=== PATIENT | female | born 1995 | race Caucasian/White ===

== ENCOUNTER 2021-09-01 10:18 | Inpatient (IN) | payer OTHER ==
[~2021-09-01] VITALS: Ht 162.6 cm; Wt 104.5 kg
[2021-09-01] VITALS (8 sets, daily range): BP systolic 117–129; BP diastolic 75–87
[2021-09-01] MEDS ORDERED: IV NORMAL SALINE 1000ML BAG 1,000 ML IV SCH ×2 (10:30→16:00)
[2021-09-01] MEDS ORDERED: ONDANSETRON PF 4 MG/2 ML VIAL. IVP ONE (10:30)
[2021-09-01] MEDS ORDERED: KETOROLAC 30 MG/ML VIAL. IVP ONE (10:30)
[2021-09-01] MEDS ORDERED: fentaNYL PF VIAL 100 MCG/2 ML VIAL IVP ONE ×2 (10:30→13:00)
--- NOTE | 2021-09-01 10:33 | PHYS DOC ---
General Adult EDM: Chief Complaint: FLANK PAIN HPI: HPI: Patient is a 26 year old female who presents with this morning awoke and went to go use the restroom and did not urinate as much as she usually does in the morning. She is having severe right flank pain that wraps around into her right lower quadrant that is sharp and shooting. She states that she also feels like she has to have some kind of a bowel movement but is unable to have a bowel movement. She states that she drinks some water and threw it up but she also tried to drink some coffee and also vomited that back up. She denies burning with urination, urinary frequency, fever, diarrhea, headache, dizziness, hematuria, constipation, drug use, alcohol use, smoking, chest pain, shortness of air, cough. She has a history of depression, anxiety. She is on control and Lexapro medication daily. Rates her pain 10 out of 10 at this time. (KELLEY JARRETT [employer]CELAIN ENAMEL SPRAYER) Review of Systems: Review of Systems: Constitutional: Denies fever or chills. [] Eyes: Denies change in visual acuity. [] HENT: Denies nasal congestion or sore throat. [] Respiratory: Denies cough or shortness of breath. [] Cardiovascular: Denies chest pain or edema. [] GI: +Right lower abdominal pain, +nausea, +vomiting, denies bloody stools or diarrhea. [] : Denies dysuria. + urine retention[] Musculoskeletal: +right flank back pain or denies joint pain. [] Integument: Denies rash. [] Neurologic: Denies headache, focal weakness or sensory changes. [] Endocrine: Denies polyuria or polydipsia. [] Lymphatic: Denies swollen glands. [] Psychiatric: Denies depression or anxiety. [] (KELLEY JARRETT [employer] ENAMEL SPRAYER) Heart Score: C/O Chest Pain: No (KELLEY JARRETT [employer]EL[employer] ENAMEL SPRAYER) Physical Exam: PE: Constitutional: Well developed, well nourished, no acute distress, non-toxic appearance. [] HENT: Normocephalic, atraumatic, bilateral external ears normal, oropharynx moist, no oral exudates, nose normal. [] Eyes: PERRLA, EOMI, conjunctiva normal, no discharge. [] Neck: Normal range of motion, no tenderness, supple, no stridor. [] Cardiovascular:Heart rate regular rhythm, no murmur [] Lungs & Thorax: Bilateral breath sounds clear to auscultation [] Abdomen: Bowel sounds normal, soft, no tenderness, no masses, no pulsatile masses. [] Skin: Warm, dry, no erythema, no rash. [] Back: No tenderness, Right CVA tenderness. [] Extremities: No tenderness, no cyanosis, no clubbing, ROM intact, no edema. [] Neurologic: Alert and oriented X 3, normal motor function, normal sensory function, no focal deficits noted. [] Psychologic: Affect normal, judgement normal, mood normal. [] (KELLEY JARRETT APRN) EKG: EKG: [] (KELLEY JARRETT APRN) Radiology/Procedures: Radiology/Procedures: [] Impression: [facility] [address] [place], [place] [id number] IMAGING REPORT Signed PATIENT: BRAYAN REVELES ACCOUNT: [id number] : 1995 LOCATION: ER AGE: 26 SEX: F EXAM STATUS: REG ER ORD. PHYSICIAN: KELLEY JARRETT APRN REASON: right flank with right lower abdomen pain PROCEDURE: CT ABDOMEN PELVIS WO CONTRAST CT ABDOMEN+PELVIS WO dated 09/01/2021 10:47 AM Indication:Reason: right flank with right lower abdomen pain / Spl. Instructions: / History: Comparison: No comparison is available. Technique: Helical noncontrast images were performed. One or more of the following individualized dose reduction techniques were utilized for this examination: 1. Automated exposure control 2. Adjustment of the mA and/or kV according to patient size 3. Use of iterative reconstruction technique Findings: The lung bases are clear. The liver and spleen are homogeneous in density and normal in configuration. The kidneys show no apparent mass, calcification or obstruction. The adrenal glands are not enlarged. No pancreatic abnormality is seen. Evaluation of the solid organs is somewhat limited by lack of IV contrast. There is no apparent retroperitoneal or mesenteric adenopathy. No abdominal soft tissue mass is seen. There is some high density along the mucosal surface of the colon. This presumably relates to ingested material. There may be mild diffuse colon wall thickening, although there is no surrounding inflammation. A normal appendix is seen inferior to the cecum. Images through the pelvis show no apparent abnormality of the distal ureters or bladder. The bladder was not well distended. No pelvic or inguinal adenopathy is seen. There is a rounded mass in the mid pelvis along the anterior aspect of the uterus. This is mostly fat density internally, although there is some soft tissue density and calcification. This mass measures about 9.4 x 7.6 x 7.4 cm. No adjacent edema or free fluid is seen. There is no separate pelvic mass. IMPRESSION: No renal or ureteral stone is seen. There may be mild colon wall thickening such as from mild colitis. 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 This probably involves the right ovary. Lack of adjacent edema or free fluid would make torsion unlikely. Ultrasound would probably not provide additional information in this case based on the size of the mass and the patient's body habitus. Electronically signed by: Renetta Geller Jr., MD (09/01/2021 11:13 AM) [id number] DICTATED and SIGNED BY: RNEETTA GELLER Jr, MD DATE: 09/01/21 [id number] [facility] [address] [place] [address] IMAGING REPORT Signed PATIENT: BRAYAN REVELES ACCOUNT: [id number] : 1995 LOCATION: ER AGE: 26 SEX: F EXAM STATUS: REG ER ORD. PHYSICIAN: KELLEY JARRETT APRN REASON: abnormal CT, SEVERE ABDOMINAL PAIN PROCEDURE: PELVIS W/TV US PELVIS W/TV Clinical Indication: Reason: abnormal CT, SEVERE ABDOMINAL PAIN Comparison: CT abdomen and pelvis without contrast, earlier same day. TECHNIQUE: Real-time ultrasound imaging of the pelvis using transabdominal and transvaginal window is performed. Findings: Anteverted uterus measures 7.2 x 3.9 x 3.2 cm. No focal abnormality. Endometrial stripe is normal measuring 7 mm. No cul-de-sac free fluid is identified. There is normal blood flow in the left ovary. Small follicles are noted. There is a heterogeneous hyperechoic mass of the right adnexa measuring a pproximately 7.4 x 8.9 x 9.8 cm. This ovarian teratoma is better characterized on the prior CT. Right ovary separate from this structure is not identified. IMPRESSION: 1. 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 2. Left ovary is normal. Electronically signed by: Mainor Velasco MD (09/01/2021 1:32 PM) [id number] DICTATED and SIGNED BY: MAINOR VELASCO MD DATE: 09/01/21 [id number] 0 (KELLEY JARRETT APRN) Course & Med Decision Making: Course & Med Decision Making Pertinent Labs and Imaging studies reviewed. (See chart for details) See HPI. Alert and oriented x4. Ambulatory with a steady gait. Speaks in full clear sentences. Right CVA tenderness. Right lower quadrant pain. States she does not feel like her bladder is full. Skin pink warm and dry. She did not take any medications prior to coming to the hospital. Her last menstrual period was [address] showed is showing a teratoma. I did get an ultrasound to check for flow to the ovary. I have spoken to Dr. Mccarty about the patient who states that he is coming to see the patient in the ED. Dr. Mccarty states that he is taking the patient to surgery. He gave no other orders. He states that he does not need any preprocedure antibiotics. (KELLEY JARRETT APRN) Course & Med Decision Making I was the Attending physician on the above date of service of this patient. This patient was evaluated, examined, treated, and dispositioned from the emergency department by the mid-level practitioner. I reviewed work-up and agreed to plan of care as stated Electronically signed, Kasey Valentino DO (KASEY VALENTINO DO) Sussy Disclaimer: Sussy Disclaimer: This electronic medical record was generated, in whole or in part, using a voice recognition dictation system. (KELLEY JARRETT APRN) Departure Departure Impression: Primary Impression: Ovarian mass, right Disposition: ADMITTED INPATIENT Admitting Physician: SHENA CONTRERAS) (KELLEY JARRETT APRN) Condition: STABLE KELLEY JARRETT APRN Sep 01, 2021 10:33 KASEY VALENTINO DO Sep 02, 2021 14:03
--- NOTE | 2021-09-01 11:15 | RAD ---
CT ABDOMEN+PELVIS WO dated 09/01/2021 10:47 AM Indication:Reason: right flank with right lower abdomen pain / Spl. Instructions: / History: Comparison: No comparison is available. Technique: Helical noncontrast images were performed. One or more of the following individualized dose reduction techniques were utilized for this examinat ion: 1. Automated exposure control 2. Adjustment of the mA and/or kV according to patient size 3. Use of iterative reconstruction technique Findings: The lung bases are clear. The liver and spleen are homogeneous in density and normal in configuration . The kidneys show no apparent mass, calcification or obstruction. The adrenal glands are not enlarge d. No pancreatic abnormality is seen. Evaluation of the solid organs is somewhat limited by lack of I V contrast. There is no apparent retroperitoneal or mesenteric adenopathy. No abdominal soft tissue m ass is seen. There is some high density along the mucosal surface of the colon. This presumably relat es to ingested material. There may be mild diffuse colon wall thickening, although there is no surrou nding inflammation. A normal appendix is seen inferior to the cecum. Images through the pelvis show no apparent abnormality of the distal ureters or bladder. The bladder was not well distended. No pelvic or inguinal adenopathy is seen. There is a rounded mass in the mid pelvis along the anterior aspect of the uterus. This is mostly fat density internally, although there is some soft tissue density and calcification. This mass measures about 9.4 x 7.6 x 7.4 cm. No adjac ent edema or free fluid is seen. There is no separate pelvic mass. IMPRESSION: No renal or ureteral stone is seen. There may be mild colon wall thickening such as from mild colitis. 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 This probably involves th e right ovary. Lack of adjacent edema or free fluid would make torsion unlikely. Ultrasound would pro bably not provide additional information in this case based on the size of the mass and the patient's body habitus. Electronically signed by: João Geller Jr., MD (09/01/2021 11:13 AM) [id number]
[2021-09-01 11:18] LABS: BASO # 0.1 x10^3/uL (0.0-0.2); BASO % 1 % (0-3); EOS # 0.2 x10^3/uL (0.0-0.7); EOS % 1 % (0-3); HEMATOCRIT 40.4 % (36.0-47.0); HEMOGLOBIN 13.5 g/dL (12.0-15.5); LYMPH # 1.9 x10^3/uL (1.0-4.8); LYMPH % 16 % (24-48); MEAN CORPUSCULAR HEMOGLOBIN 30 pg (25-35); MEAN CORPUSCULAR HGB CONC 33 g/dL (31-37); MEAN CORPUSCULAR VOLUME 90 fL (79-100); MONO # 0.6 x10^3/uL (0.0-1.1); MONO % 5 % (0-9); NEUT # 8.7 x10^3/uL (1.8-7.7); NEUT % 77 % (31-73); PLATELET COUNT 175 x10^3/uL (140-400); RED CELL DISTRIBUTION WIDTH 12.8 % (11.5-14.5); WHITE BLOOD COUNT 11.3 x10^3/uL (4.0-11.0)
[2021-09-01 11:28] LABS: BILIRUBIN,URINE NEGATIVE (NEG); CLARITY,URINE CLEAR; COLOR,URINE YELLOW; NITRITE,URINE NEGATIVE (NEG); PROTEIN,URINE NEGATIVE (NEG-TRACE); UROBILINOGEN,URINE 0.2 mg/dL (0.2 mg/dL)
[2021-09-01 11:42] LABS: BACTERIA,URINE FEW /HPF (0-FEW); RBC,URINE 0 /HPF (0-2); WBC,URINE 0 /HPF (0-4)
[2021-09-01 11:56] LABS: CALCIUM 8.5 mg/dL (8.5-10.1); CREATININE 0.7 mg/dL (0.6-1.0); GFR 99.6; POTASSIUM 4.4 mmol/L (3.5-5.1)
[2021-09-01 12:02] LABS: ALBUMIN 3.7 g/dL (3.4-5.0); ALBUMIN/GLOBULIN RATIO 1.1 (1.0-1.7); TOTAL BILIRUBIN 0.4 mg/dL (0.2-1.0); TOTAL PROTEIN 7.2 g/dL (6.4-8.2)
--- NOTE | 2021-09-01 13:35 | RAD ---
US PELVIS W/TV Clinical Indication: Reason: abnormal CT, SEVERE ABDOMINAL PAIN Comparison: CT abdomen and pelvis without contrast, earlier same day. TECHNIQUE: Real-time ultrasound imaging of the pelvis using transabdominal and transvaginal window is performed. Findings: Anteverted uterus measures 7.2 x 3.9 x 3.2 cm. No focal abnormality. Endometrial stripe is normal josé antonio suring 7 mm. No cul-de-sac free fluid is identified. There is normal blood flow in the left ovary. Small follicles are noted. There is a heterogeneous hyperechoic mass of the right adnexa measuring approximately 7.4 x 8.9 x 9.8 cm. This ovarian teratoma is better characterized on the prior CT. Right ovary separate from this st ructure is not identified. IMPRESSION: 1. 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 2. Left ovary is normal. Electronically signed by: Mainor Velasco MD (09/01/2021 1:32 PM) [id number]
--- NOTE | 2021-09-01 13:47 | PDOC1 ---
REFINERY OPERATOR COKING H&P Date of Admission: Date of Admission: History of Present Illness: The pt is a 26y G0 who presented to the ER with acute onset RLQ pain. The pt states that when she woke up this am she had intense pain in her abd and lower back. Initially she thought it was gas, so she tried to start her work out. The pain only got worse. She had vomited twice. With the worsening pain, they decide to come to the ER. In the ER the pt was found to have a slightly elevated WBC of 11.3. A CT was performed revealing the following: No renal or ureteral stone is seen. There may be mild colon wall thickening such as from mild colitis. 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 This probably involves the right ovary. Lack of adjacent edema or free fluid would make torsion unlikely. Ultrasound would probably not provide additional information in this case based on the size of the mass and the patient's body habitus. PMH: Denies PSH: Denies Meds: Lexapro, OCPs All: PCN, Sulfa OBHx: G0 [employer]: LMP ~2wks ago 9yo / regular SH: no tob, rare EtOH FH: DVT, HTN, DM Medications: Meds: Current Medications Medications (Trade) Dose Ordered Sig/Gabby Route PRN Reason Start Time Stop Time Status Last Admin Dose Admin Sodium Chloride 1,000 ml @ 1,000 mls/hr Q1H IV 09/01/21 10:30 09/01/21 11:29 DC 09/01/21 11:00 Fentanyl Citrate (Fentanyl 2ml Vial) 50 mcg 1X ONCE IVP 09/01/21 10:30 09/01/21 10:47 DC 09/01/21 10:40 Ondansetron HCl (Zofran) 4 mg 1X ONCE IVP 09/01/21 10:30 09/01/21 10:47 DC 09/01/21 10:40 Ketorolac Tromethamine (Toradol 30mg Vial) 30 mg 1X ONCE IVP 09/01/21 10:30 09/01/21 10:47 DC 09/01/21 10:40 Fentanyl Citrate (Fentanyl 2ml Vial) 50 mcg 1X ONCE IVP 09/01/21 13:00 09/01/21 13:01 DC 09/01/21 13:07 Allergies: Coded Allergies: Penicillins (Verified Allergy, Unknown, 09/01/21) Sulfa (Sulfonamide Antibiotics) (Verified Allergy, Unknown, 09/01/21) Physical Exam: Vital Signs: Vital Signs Date Time Temp Pulse Resp B/P (MAP) Pulse Ox O2 Delivery O2 Flow Rate FiO2 09/01/21 10:25 98.4 24 154/100 (118) Room Air 98.4 PE: GENERAL: No apparent distress. Alert and oriented. HEENT: Head normocephalic, atraumatic. NECK: Supple LUNGS: Clear to auscultation. HEART: RRR, S1, S2 present, pulses intact ABDOMEN: Soft, positive bowel sounds. EXTREMITIES: No cyanosis or edema. NEUROLOGIC: Normal speech, normal tone PSYCHIATRIC: Normal affect, normal mood. SKIN: No ulceration. Labs: Laboratory Tests Test 09/01/21 10:21 09/01/21 10:23 09/01/21 10:34 Urine Collection Type Void Urine Color Yellow Urine Clarity Clear Urine pH 7.0 (<5.0-8.0) Urine Specific Cantril 1.025 (1.000-1.030) Urine Protein Negative mg/dL (NEG-TRACE) Urine Glucose (UA) Negative mg/dL (NEG) Urine Ketones (Stick) Negative mg/dL (NEG) Urine Blood Negative (NEG) Urine Nitrite Negative (NEG) Urine Bilirubin Negative (NEG) Urine Urobilinogen Dipstick 0.2 mg/dL (0.2 mg/dL) Urine Leukocyte Esterase Negative (NEG) Urine RBC 0 /HPF (0-2) Urine WBC 0 /HPF (0-4) Urine Squamous Epithelial Cells Few /LPF Urine Bacteria Few /HPF (0-FEW) Urine Mucus Mod /LPF POC Urine HCG, Qualitative Hcg negative (Negative) White Blood Count 11.3 x10^3/uL (4.0-11.0) H Red Blood Count 4.50 x10^6/uL (3.50-5.40) Hemoglobin 13.5 g/dL (12.0-15.5) Hematocrit 40.4 % (36.0-47.0) Mean Corpuscular Volume 90 fL (79-100) Mean Corpuscular Hemoglobin 30 pg (25-35) Mean Corpuscular Hemoglobin Concent 33 g/dL (31-37) Red Cell Distribution Width 12.8 % (11.5-14.5) Platelet Count 175 x10^3/uL (140-400) Neutrophils (%) (Auto) 77 % (31-73) H Lymphocytes (%) (Auto) 16 % (24-48) L Monocytes (%) (Auto) 5 % (0-9) Eosinophils (%) (Auto) 1 % (0-3) Basophils (%) (Auto) 1 % (0-3) Neutrophils # (Auto) 8.7 x10^3/uL (1.8-7.7) H Lymphocytes # (Auto) 1.9 x10^3/uL (1.0-4.8) Monocytes # (Auto) 0.6 x10^3/uL (0.0-1.1) Eosinophils # (Auto) 0.2 x10^3/uL (0.0-0.7) Basophils # (Auto) 0.1 x10^3/uL (0.0-0.2) Sodium Level 140 mmol/L (136-145) Potassium Level 4.4 mmol/L (3.5-5.1) Chloride Level 105 mmol/L (98-107) Carbon Dioxide Level 23 mmol/L (21-32) Anion Gap 12 (6-14) Blood Urea Nitrogen 15 mg/dL (7-20) Creatinine 0.7 mg/dL (0.6-1.0) Estimated GFR (Cockcroft-Gault) 99.6 BUN/Creatinine Ratio 21 (6-20) H Glucose Level 101 mg/dL (70-99) H Calcium Level 8.5 mg/dL (8.5-10.1) Total Bilirubin 0.4 mg/dL (0.2-1.0) Aspartate Amino Transferase (AST) 15 U/L (15-37) Alanine Aminotransferase (ALT) 21 U/L (14-59) Alkaline Phosphatase 70 U/L (46-116) Total Protein 7.2 g/dL (6.4-8.2) Albumin 3.7 g/dL (3.4-5.0) Albumin/Globulin Ratio 1.1 (1.0-1.7) Lipase 119 U/L (73-393) Laboratory Tests 09/01/21 10:34 Laboratory Tests 09/01/21 10:34 Laboratory Tests 09/01/21 10:34 Assessment & Plan: A/P 26y G0 with a right ovarian mass 1.) Right ovarian mass likely teratoma on CT. Based on acute abd discussed removal at this time. Discussed impact on future fertility. Pt understands and is willing to proceed. 2.) RLQ/back pain only improved with pain meds, cant lay back DOMINGO LUCIA MD Sep 01, 2021 13:47
[2021-09-01] MEDS ORDERED: MORPHINE SULFATE 2 MG/ML INJ. IVP PRN ×3 (16:00→18:30)
[2021-09-01] MEDS ORDERED: ONDANSETRON PF 4 MG/2 ML VIAL. IVP PRN (16:15)
[2021-09-01] MEDS ORDERED: GENTAMICIN SULFATE 270 MG in IV NORMAL SALINE 100ML 100 ML IV SCH (17:00)
[2021-09-01] MEDS ORDERED: PROPOFOL 10 MG/ML (20ML) VIAL. IV ONE (17:09)
[2021-09-01] MEDS ORDERED: DEXAMETHASONE SOD PHOS 4 MG/ML VIAL ONE (17:09)
[2021-09-01] MEDS ORDERED: ONDANSETRON PF 4 MG/2 ML VIAL. ONE (17:09)
[2021-09-01] MEDS ORDERED: ROCURONIUM 50 MG/5 ML VIAL. ONE (17:10)
--- NOTE | 2021-09-01 17:17 | NUR ---
To Or per cart vss
[2021-09-01] MEDS ORDERED: SURGICEL HEMOSTAT 4X8 EACH. ONE (17:31)
[2021-09-01] MEDS ORDERED: fentaNYL PF VIAL 100 MCG/2 ML VIAL ONE ×2 (18:05→19:11)
[2021-09-01] MEDS ORDERED: IV RINGERS,LACTATED 1000ML 1,000 ML IV SCH ×2 (18:30→19:30)
[2021-09-01] MEDS ORDERED: PROCHLORPERAZINE 10 MG/2 ML VIAL. IVP PRN ×2 (18:30→19:30)
[2021-09-01] MEDS ORDERED: fentaNYL PF VIAL 100 MCG/2 ML VIAL IVP PRN ×3 (18:30→19:30)
[2021-09-01] MEDS ORDERED: HYDROmorphone 2 MG/ML VIAL IVP PRN ×2 (18:30→19:30)
[2021-09-01] MEDS ORDERED: GLYCOPYRROLATE 1 MG/5 ML VIAL. ONE (18:56)
[2021-09-01] MEDS ORDERED: SEVOFLURANE 61 TO 120 MINUTES. IH ONE (18:56)
[2021-09-01] MEDS ORDERED: NEOSTIGMINE METHYLSULFATE 5 MG/5 ML SYRINGE. ONE (18:56)
[2021-09-01] MEDS ORDERED: MORPHINE SULFATE 2 MG/ML INJ. IV PRN ×2 (19:00)
[2021-09-01] MEDS ORDERED: diphenhydrAMINE HCL 25 MG CAPSULE PO PRN (19:00)
[2021-09-01] MEDS ORDERED: KETOROLAC 15 MG/ML VIAL. IV PRN (19:00)
[2021-09-01] MEDS ORDERED: oxyCODONE/APAP 5/325 1 TAB TABLET PO PRN (19:00)
[2021-09-01] MEDS ORDERED: DEXTROSE 50% 25 GM / 50ML DISP.SYRIN. IV PRN (19:00)
[2021-09-01] MEDS ORDERED: NALOXONE 0.4 MG/ML VIAL. IV PRN (19:00)
[2021-09-01] MEDS: IV DEXTROSE 5 %-0.45 % NACL 1,000 ML IV SCH (19:00)
[2021-09-01] MEDS ORDERED: 0.9 % SODIUM CHLORIDE 10 ML DISP.SYRIN. IV PRN (19:00)
[2021-09-01] MEDS ORDERED: diphenhydrAMINE 50 MG/ML VIAL IV PRN (19:00)
[2021-09-01] MEDS: IV NORMAL SALINE 1000ML BAG 1,000 ML IV SCH (19:00)
--- NOTE | 2021-09-01 19:02 | PDOC4 ---
OPERATIVE NOTE: PreOp Dx: 1.) Right ovarian mass likely teratoma, 2.) RLQ/back pain PostOp Dx: same Procedure: Open RSO Surgeon: Feroz Lucia Anesthesia: GETA EBL: 300 cc Fluids: 1000 cc UOP: 175 cc Complications: None Findings: right enlarged ovary and cyst Pathology: right tube and ovary DOMINGO LUCIA MD Sep 01, 2021 19:02
[2021-09-01] MEDS: fentaNYL PF VIAL 100 MCG/2 ML VIAL IVP PRN ×2 (19:14→19:22)
[2021-09-01] MEDS: MORPHINE SULFATE 2 MG/ML INJ. IVP PRN ×2 (19:14→19:24)
--- NOTE | 2021-09-01 20:24 | OP ---
DATE OF SURGERY: 09/01/2021 PREOPERATIVE DIAGNOSES: 1. Right ovarian mass, likely teratoma. 2. Right lower quadrant/back pain. POSTOPERATIVE DIAGNOSES: 1. Right ovarian mass, likely teratoma. 2. Right lower quadrant/back pain. PROCEDURE: Open RSO. SURGEON: Hernandez Mccarty MD ANESTHESIA: General endotracheal intubation. ESTIMATED BLOOD LOSS: 300 mL. FLUIDS: 1000 mL. URINE OUTPUT: 175 mL. COMPLICATIONS: None. FINDINGS: Right enlarged ovarian cyst. PATHOLOGY: Right tube and ovary. DESCRIPTION OF PROCEDURE: The patient was taken to the operating room where general endotracheal intubation was obtained without difficulty. The patient was prepped and draped in normal sterile fashion. Pfannenstiel skin incision was made approximately 2 cm above her pubic symphysis and carried down to underlying layer of fascia. The fascia was then nicked in the midline. Fascial incision was then extended laterally with Riley scissors. The superior aspect of the fascial incision was then grasped with Lisa clamps, elevated and the underlying rectus muscle was dissected off with Riley scissors. Attention was then turned to the inferior aspect of the fascial incision, which was grasped with Lisa clamps, elevated and the underlying rectus muscle was dissected off with Riley scissors. At that point, the midline of the rectus muscle was identified and . The peritoneum was grasped with 2 hemostats and then entered sharply with Metzenbaum scissors. At that point, the peritoneal incision was extended superiorly and inferiorly with good visualization of the bladder with traction and countertraction. Inspection of the abdomen revealed enlarged right ovary. It did not appear to be torsed and seemed to be getting adequate blood supply. At that point, the enlarged mass was then delivered. Once it was delivered, the uterine ovarian pedicle was identified and a Mahendra clamp was used to clamp the pedicle as well as the tube. This pedicle was double clamped and then cut. A 0 Vicryl was then used to tie off this pedicle. There still was an area that was bleeding, so a Mahendra clamp was then placed on the bleeding pedicle. This was then suture ligated to achieve hemostasis. At that point, the gutters were copiously irrigated and cleared of all clots and debris. The peritoneum was then reapproximated with 2-0 Vicryl in a running fashion. The muscle was reapproximated with 2-0 Vicryl in a running fashion. The fascia was then closed with 0 Vicryl in a running fashion. The space was closed with 3 interrupted 2-0 Vicryls. The skin was closed with 3-0 Monocryl in a subcuticular manner. The patient tolerated the procedure well. Sponges, laps and needles were correct x 3. Clindamycin and gentamicin were given prior to the procedure for prophylaxis. The patient tolerated the procedure well and was taken to recovery room in stable condition. МАРИЯ/HEATHER DR: Dayami TID: [id number]
[2021-09-01] MEDS ORDERED: KETOROLAC 30 MG/ML VIAL. IV PRN (21:07)
[2021-09-02 01:14] VITALS: BP 131/79
[2021-09-02] MEDS: oxyCODONE/APAP 5/325 1 TAB TABLET PO PRN ×3 (02:03→12:33)
[2021-09-02] MEDS: IV DEXTROSE 5 %-0.45 % NACL 1,000 ML IV SCH ×2 (05:00→15:00)
[2021-09-02] MEDS ORDERED: CLINDAMYCIN 900MG PREMIX 50 ML IV PRN (06:00)
[2021-09-02 06:28] VITALS: BP 104/70
--- NOTE | 2021-09-02 06:30 | NUR ---
manually administered Percocet at 0610 on desktop, computer on wheels would not open [employer].
[2021-09-02 07:14] LABS: BASO % 0 % (0-3); EOS % 0 % (0-3); HEMATOCRIT 36.9 % (36.0-47.0); HEMOGLOBIN 12.2 g/dL (12.0-15.5); LYMPH # 1.2 x10^3/uL (1.0-4.8); LYMPH % 12 % (24-48); MEAN CORPUSCULAR HEMOGLOBIN 30 pg (25-35); MEAN CORPUSCULAR HGB CONC 33 g/dL (31-37); MEAN CORPUSCULAR VOLUME 90 fL (79-100); MONO # 0.7 x10^3/uL (0.0-1.1); MONO % 7 % (0-9); NEUT # 7.9 x10^3/uL (1.8-7.7); NEUT % 81 % (31-73); PLATELET COUNT 165 x10^3/uL (140-400); RED BLOOD COUNT 4.08 x10^6/uL (3.50-5.40); RED CELL DISTRIBUTION WIDTH 12.7 % (11.5-14.5); WHITE BLOOD COUNT 9.8 x10^3/uL (4.0-11.0)
[2021-09-02 07:33] LABS: CREATININE 0.7 mg/dL (0.6-1.0); GFR 99.6; POTASSIUM 4.4 mmol/L (3.5-5.1)
[2021-09-02 08:15] VITALS: BP 103/74
--- NOTE | 2021-09-02 08:38 | PDOC ---
LEATHER STAKER PROGRESS NOTE Date of Service: DATE: 09/02/21 TIME: 08:37 Subjective: Pt with good pain control. [place] PO. Voiding. Minimal VB. Objective: Vital Signs: Vital Signs Date Time Temp Pulse Resp B/P (MAP) Pulse Ox O2 Delivery O2 Flow Rate FiO2 09/01/21 10:25 98.4 24 154/100 (118) Room Air 98.4 09/01/21 15:05 84 98 09/01/21 19:06 6 Vital Signs Date Time Temp Pulse Resp B/P (MAP) Pulse Ox O2 Delivery O2 Flow Rate FiO2 09/02/21 08:15 99.4 69 16 103/74 (84) 98 Room Air 99.4 09/01/21 19:24 6.0 Labs: Laboratory Tests Test 09/01/21 10:21 09/01/21 10:23 09/01/21 10:34 09/01/21 13:46 Urine Collection Type Void Urine Color Yellow Urine Clarity Clear Urine pH 7.0 (<5.0-8.0) Urine Specific [place] 1.025 (1.000-1.030) Urine Protein Negative mg/dL (NEG-TRACE) Urine Glucose (UA) Negative mg/dL (NEG) Urine Ketones (Stick) Negative mg/dL (NEG) Urine Blood Negative (NEG) Urine Nitrite Negative (NEG) Urine Bilirubin Negative (NEG) Urine Urobilinogen Dipstick 0.2 mg/dL (0.2 mg/dL) Urine Leukocyte Esterase Negative (NEG) Urine RBC 0 /HPF (0-2) Urine WBC 0 /HPF (0-4) Urine Squamous Epithelial Cells Few /LPF Urine Bacteria Few /HPF (0-FEW) Urine Mucus Mod /LPF POC Urine HCG, Qualitative Hcg negative (Negative) White Blood Count 11.3 x10^3/uL (4.0-11.0) H Red Blood Count 4.50 x10^6/uL (3.50-5.40) Hemoglobin 13.5 g/dL (12.0-15.5) Hematocrit 40.4 % (36.0-47.0) Mean Corpuscular Volume 90 fL (79-100) Mean Corpuscular Hemoglobin 30 pg (25-35) Mean Corpuscular Hemoglobin Concent 33 g/dL (31-37) Red Cell Distribution Width 12.8 % (11.5-14.5) Platelet Count 175 x10^3/uL (140-400) Neutrophils (%) (Auto) 77 % (31-73) H Lymphocytes (%) (Auto) 16 % (24-48) L Monocytes (%) (Auto) 5 % (0-9) Eosinophils (%) (Auto) 1 % (0-3) Basophils (%) (Auto) 1 % (0-3) Neutrophils # (Auto) 8.7 x10^3/uL (1.8-7.7) H Lymphocytes # (Auto) 1.9 x10^3/uL (1.0-4.8) Monocytes # (Auto) 0.6 x10^3/uL (0.0-1.1) Eosinophils # (Auto) 0.2 x10^3/uL (0.0-0.7) Basophils # (Auto) 0.1 x10^3/uL (0.0-0.2) Sodium Level 140 mmol/L (136-145) Potassium Level 4.4 mmol/L (3.5-5.1) Chloride Level 105 mmol/L (98-107) Carbon Dioxide Level 23 mmol/L (21-32) Anion Gap 12 (6-14) Blood Urea Nitrogen 15 mg/dL (7-20) Creatinine 0.7 mg/dL (0.6-1.0) Estimated GFR (Cockcroft-Gault) 99.6 BUN/Creatinine Ratio 21 (6-20) H Glucose Level 101 mg/dL (70-99) H Calcium Level 8.5 mg/dL (8.5-10.1) Total Bilirubin 0.4 mg/dL (0.2-1.0) Aspartate Amino Transferase (AST) 15 U/L (15-37) Alanine Aminotransferase (ALT) 21 U/L (14-59) Alkaline Phosphatase 70 U/L (46-116) Total Protein 7.2 g/dL (6.4-8.2) Albumin 3.7 g/dL (3.4-5.0) Albumin/Globulin Ratio 1.1 (1.0-1.7) Lipase 119 U/L (73-393) SARS-CoV-2 Antigen (Rapid) Negative (NEGATIVE) Test 09/02/21 07:00 White Blood Count 9.8 x10^3/uL (4.0-11.0) Red Blood Count 4.08 x10^6/uL (3.50-5.40) Hemoglobin 12.2 g/dL (12.0-15.5) Hematocrit 36.9 % (36.0-47.0) Mean Corpuscular Volume 90 fL (79-100) Mean Corpuscular Hemoglobin 30 pg (25-35) Mean Corpuscular Hemoglobin Concent 33 g/dL (31-37) Red Cell Distribution Width 12.7 % (11.5-14.5) Platelet Count 165 x10^3/uL (140-400) Neutrophils (%) (Auto) 81 % (31-73) H Lymphocytes (%) (Auto) 12 % (24-48) L Monocytes (%) (Auto) 7 % (0-9) Eosinophils (%) (Auto) 0 % (0-3) Basophils (%) (Auto) 0 % (0-3) Neutrophils # (Auto) 7.9 x10^3/uL (1.8-7.7) H Lymphocytes # (Auto) 1.2 x10^3/uL (1.0-4.8) Monocytes # (Auto) 0.7 x10^3/uL (0.0-1.1) Eosinophils # (Auto) 0.0 x10^3/uL (0.0-0.7) Basophils # (Auto) 0.0 x10^3/uL (0.0-0.2) Sodium Level 139 mmol/L (136-145) Potassium Level 4.4 mmol/L (3.5-5.1) Chloride Level 106 mmol/L (98-107) Carbon Dioxide Level 22 mmol/L (21-32) Anion Gap 11 (6-14) Blood Urea Nitrogen 11 mg/dL (7-20) Creatinine 0.7 mg/dL (0.6-1.0) Estimated GFR (Cockcroft-Gault) 99.6 Glucose Level 117 mg/dL (70-99) H Calcium Level 8.0 mg/dL (8.5-10.1) L Laboratory Tests 09/01/21 10:34 09/02/21 07:00 Laboratory Tests 09/01/21 10:34 09/02/21 07:00 Laboratory Tests 09/02/21 07:00 Physical Exam: GENERAL: No apparent distress. Alert and oriented. HEENT: Head normocephalic, atraumatic. NECK: Supple LUNGS: Clear to auscultation. HEART: RRR, S1, S2 present, pulses intact ABDOMEN: Soft, positive bowel sounds. EXTREMITIES: No cyanosis or edema. NEUROLOGIC: Normal speech, normal tone PSYCHIATRIC: Normal affect, normal mood. SKIN: No ulceration. 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
[2021-09-02] MEDS: DOCUSATE SODIUM 100 MG CAPSULE. PO SCH ×3 (09:00→21:00)
[2021-09-02 12:10] VITALS: BP 107/60
[2021-09-02] MEDS: IBUPROFEN 200 MG TABLET. PO PRN ×2 (12:34→21:59)
[2021-09-02 17:10] VITALS: BP 101/57
[2021-09-02] MEDS: IV NORMAL SALINE 1000ML BAG 1,000 ML IV SCH (19:00)
[2021-09-02 21:15] VITALS: BP 108/60
[2021-09-03] MEDS: IV DEXTROSE 5 %-0.45 % NACL 1,000 ML IV SCH (01:00)
[2021-09-03 05:09] VITALS: BP 116/67
[2021-09-03] MEDS: oxyCODONE/APAP 5/325 1 TAB TABLET PO PRN (05:09)
[2021-09-03 07:50] VITALS: BP_SYST 100; BP_SYST 115; BP_DIAS 68; BP_DIAS 69
[2021-09-03] MEDS ORDERED: DOCU-109 PO (08:37)
[2021-09-03] MEDS ORDERED: IBUP-1060 PO (08:37)
[2021-09-03] MEDS ORDERED: OXYC1TAB15 PO (08:37)
--- NOTE | 2021-09-03 08:40 | PDOC ---
PEDIATRIC PHYSICIAN ASSISTANT PROGRESS NOTE Date of Service: DATE: 09/03/21 TIME: 08:39 Subjective: Pt with good pain control. [place] PO. Voiding. Objective: Vital Signs: Vital Signs Date Time Temp Pulse Resp B/P (MAP) Pulse Ox O2 Delivery O2 Flow Rate FiO2 09/02/21 08:15 99.4 69 16 103/74 (84) 98 Room Air 99.4 Vital Signs Date Time Temp Pulse Resp B/P (MAP) Pulse Ox O2 Delivery O2 Flow Rate FiO2 09/03/21 07:55 16 Room Air 09/03/21 07:50 98.0 83 100/68 (79) 100 98.0 Physical Exam: GENERAL: No apparent distress. Alert and oriented. HEENT: Head normocephalic, atraumatic. NECK: Supple LUNGS: Clear to auscultation. HEART: RRR, S1, S2 present, pulses intact ABDOMEN: Soft, positive bowel sounds. EXTREMITIES: No cyanosis or edema. NEUROLOGIC: Normal speech, normal tone PSYCHIATRIC: Normal affect, normal mood. SKIN: No ulceration. 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
--- NOTE | 2021-09-03 09:25 | DS ---
DATE OF DISCHARGE: 09/03/2021 ADMISSION DIAGNOSES: 1. Right lower quadrant/back pain. 2. Right ovarian mass. DISCHARGE DIANGOSES: 1. Right lower quadrant/back pain. 2. Right ovarian mass. PROCEDURE: Open right salpingo-oophorectomy. BRIEF HOSPITAL COURSE: The patient is a 26-year-old 0 who presented to the ER with acute onset right lower quadrant back pain. The patient experienced the pain this morning when she woke up, it did not resolve. CT was performed in the ER, revealing an enlarged 9.4 x 7.6 x 7.4 cm mass, thought to be a teratoma. By the time I reached the ER, the patient was still with pain. The patient was then put on the schedule for removal of the teratoma. The patient underwent said procedure. See operative note for full detail. By postop day #2, the patient was meeting all discharge criteria and was discharged home. Of note, the patient had a hemoglobin of 13.5 on admission and after procedure was found to be 12.2. DISCHARGE INSTRUCTIONS: The patient was told not to lift anything greater than 20 pounds, have pelvic rest for 6 weeks, not to drive on narcotics. CALL IF: The patient was call if she had fevers, chills, nausea, vomiting, abdominal pain or any additional questions or concerns. FOLLOWUP APPOINTMENT: The patient was to follow up on 09/11/2021 at 11:15 a.m. DISCHARGE MEDICATIONS: The patient was given a prescription for Percocet 5, 15 pills; Motrin 800 mg, 30 pills and Colace 100 mg, [address]: Dayami TID: [id number]
--- NOTE | 2021-09-03 09:35 | NUR ---
Discharge Note: BRAYAN REVELES3 SO LND Discharge instructions and discharge home medications reviewed with Patient and a copy given. All questions have been answered and understanding verbalized. The following instructions and handouts were given: Unilateral Salpingo-Oophorectomy, Care After Discontinued lines and drains: 20g. L FA removed, catheter tip intact. Patient discharged to home with self-care via WC to private vehicle.
--- NOTE | 2021-09-05 18:15 | PATHOLOGY ---
[facility] Accession Number: [id number] . 01 Material submitted: . ovary - FALLOPIAN RIGHT TUBE AND OVARY. Modifiers: right . 01 Clinical history: . RIGHT OVARIAN MASS LAPAROTOMY WITH RIGHT SALPINGO-OOPHORECTOMY . 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 - Fallopian tube showing no diagnostic abnormalities. (JPM:[facility]; 09/05/2021) [facility] 09/05/2021 1747 Local . 02 Comment: There is no evidence of malignancy. (JPM:[facility]; 09/05/2021) . . 02 Electronically signed: . Leonel Bolaños MD, Pathologist NPI- [id number] . 01 Gross description: . The specimen is received in formalin, labeled "Viktoriya Vance, right fallopian tube and ovary" and consists of an intact 286 g ovary (8.8 x 7.5 x 6.7 cm) with an attached fimbriated fallopian tube (5.8 cm in length by 0.4 cm diameter) which is possibly consistent with having been previously ligated. The ovarian capsule is pink-avitia, smooth and dusky. Sectioning reveals brown-yellow soft, amorphous and focally calcified cut surfaces that contain hair. No teeth are identified. Attached to the ovary is unremarkable fimbriated fallopian tube with pink, smooth serosa. Sectioning reveals unremarkable cut surfaces. Represented sections are submitted following decalcification as follows: A1-A4: Ovary, represented A5: Fallopian tube, represented ([facility]; 09/04/2021) DKA/DKA 09/05/2021 1213 Local . 02 Pathologist provided ICD-10: D27.0 . 02 CPT . 652955 Specimen Comment: A courtesy copy of this report has been sent to [phone] Specimen Comment: Report sent to Performed at: [address], [place] [id number] MD Collin Rich MD Phone: [phone] Performed at: 02 [facility] [address] [place], [place] [id number] MD Leonel Bolaños MD Phone: [phone]
== END 2021-09-03 09:35 | disposition home or self-care (01) | DRG 743 ==
LOC: ER 10:18 → 3 SO LND 13:30
PROVIDERS: ADMIT Obstetrics & Gynecology; ATTEND Obstetrics & Gynecology
PROC: 0UB00ZZ Excision of Right Ovary, Open Approach (ICD-10-PCS; 2021-09-01)
PROC: 0UT50ZZ Resection of Right Fallopian Tube, Open Approach (ICD-10-PCS; principal; 2021-09-01 17:00)
DX: D27.0 Benign neoplasm of right ovary (principal); E11.9 Type 2 diabetes mellitus without complications; I10 Essential (primary) hypertension; F32.A Depression, unspecified; F41.9 Anxiety disorder, unspecified
CPT/HCPCS: 36415; 74176; 76830; 76856; 80048; 80053; 81001; 81025; 83690; 85025; 87426; 88307; 96374; A4314; A4364; A4452; A4930; A6402; J1100; J1580; J1885; J2270; J2405; J2704; J2710; J3010; J3490; J7030; J7120; U0003; U0005; 99285-25; G0378